=== PATIENT | male | born 1960 | race Caucasian/White ===

== ENCOUNTER 2025-02-25 20:41 | Emergency (ER) | payer BC, MEDICARE ==
[~2025-02-25] VITALS: Ht 190.5 cm; Wt 112.7 kg
[2025-02-25] MEDS: LIDOCAINE 1% MDV 20ML VIAL SC ONE (23:40)
[2025-02-25] MEDS: ACETAMINOPHEN 500 MG TAB PO ONE (23:41)
[2025-02-25] MEDS: BOOSTRIX VACCINE (TETANUS/DIPHTH/ACEL. PERTUSSIS) 0.5ML SYR IM.IMMUN ONE (23:42)
[2025-02-26 00:44] VITALS: BP 141/71; TEMP 97; O2SAT 98
== END 2025-02-26 01:00 | disposition home or self-care (01) ==
LOC: M ED 20:41
DX: S61.012A Laceration without foreign body of left thumb without damage to nail, initial encounter (principal); W26.8XXA Contact with other sharp object(s), not elsewhere classified, initial encounter; M06.9 Rheumatoid arthritis, unspecified; F19.10 Other psychoactive substance abuse, uncomplicated; Y92.009 Unspecified place in unspecified non-institutional (private) residence as the place of occurrence of the external cause; Y93.89 Activity, other specified; Y99.9 Unspecified external cause status; Z23 Encounter for immunization